=== PATIENT | female | born 1980 | race Caucasian/White ===

== ENCOUNTER 2018-08-26 19:23 | Emergency (ER) | payer BC ==
[2018-08-26] MEDS ORDERED: Ondansetron 4 MG/2 ML SDV IVPUSH ONE (20:25)
[2018-08-26] MEDS ORDERED: HYDROmorphone 0.5 MG/0.5 ML Syringe IVPUSH ONE (20:25)
--- NOTE | 2018-08-26 20:27 | EDM.PDOC ---
ED HPI GENERAL MEDICAL PROBLEM - General Chief Complaint: Flank Pain Stated Complaint: LEFT FLANK PAIN, VOMITING Time Seen by Provider: 08/26/18 20:26 Source of Information: Reports: Patient History Limitations: Reports: No Limitations - History of Present Illness INITIAL COMMENTS - FREE TEXT/NARRATIVE: pt has had some left flank pain on and off all last week. Today this pain has gotten quite severe at time. She did have a urine run on wed which had rbcs and bacteria. The urine was very concentrated. At this point the pain is being rated at a 10, Onset: Gradual, Other ( It has been there on and off for about 1 week. 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 ) HEENT: Reports: No Symptoms Respiratory: Reports: No Symptoms Cardiovascular: Reports: No Symptoms Endocrine: Reports: No Symptoms GI/Abdominal: Reports: Abdominal Pain, Nausea, Vomiting, Other (pt is having severe left flank pain. ) : Reports: Flank Pain, Hematuria Musculoskeletal: Reports: No Symptoms Skin: Reports: No Symptoms Neurological: Reports: No Symptoms ED EXAM, GI/ABD - Physical Exam Exam: See Below Text/Narrative:: pt arrived with severe left flank pain and chilling. This pain has become very severe today. Exam Limited By: No Limitations General Appearance: Alert, Anxious, Severe Distress, Active Emesis Ears: Normal TMs Nose: Normal Inspection Throat/Mouth: Normal Inspection Head: Atraumatic Neck: Normal Inspection Respiratory/Chest: No Respiratory Distress Cardiovascular: Regular Rate, Rhythm GI/Abdominal Exam: Other (pt has a soft abdoman but her left flank is tender. ) (Female) Exam: Other (pt does have a history of kidney stone. ) Rectal (Female) Exam: Deferred Back Exam: Normal Inspection Extremities: Normal Inspection Neurological: Alert, Oriented, Normal Cognition Psychiatric: Normal Affect Course - Vital Signs Last Recorded V/S: Last Vital Signs Temp 36.2 C 08/26/18 20:06 Pulse 84 08/26/18 23:13 Resp 20 08/26/18 23:13 BP 127/66 08/26/18 23:13 Pulse Ox 100 08/26/18 23:13 - Orders/Labs/Meds Orders: Active Orders 24 hr Category Date Time Status Bladder Scan [RC] ASDIRECTED Care 08/26/18 23:00 Active Abdomen Pelvis wo Cont [CT] Stat Exams 08/26/18 20:26 Taken CULTURE URINE [RM] Stat Lab 08/27/18 00:09 Ordered Sodium Chloride 0.9% [Normal Saline] 1,000 ml Med 08/26/18 20:30 Active IV ASDIRECTED Sodium Chloride 0.9% [Normal Saline] 1,000 ml Med 08/26/18 21:45 Active IV ASDIRECTED Sodium Chloride 0.9% [Normal Saline] 1,000 ml Med 08/26/18 23:15 Active IV ASDIRECTED Medication Orders Sodium Chloride (Normal Saline) 1,000 mls @ 999 mls/hr IV ASDIRECTED FARHAT Last Admin: 08/26/18 20:43 Dose: 999 mls/hr Sodium Chloride (Normal Saline) 1,000 mls @ 999 mls/hr IV ASDIRECTED FARHAT Last Admin: 08/26/18 22:11 Dose: 999 mls/hr Sodium Chloride (Normal Saline) 1,000 mls @ 999 mls/hr IV ASDIRECTED FARHAT Last Admin: 08/26/18 23:37 Dose: 999 mls/hr Labs: Laboratory Tests 08/26/18 08/26/18 08/26/18 Range/Units 20:40 20:40 21:13 WBC 19.7 H (4.5-11.0) K/uL RBC 4.99 (3.30-5.50) M/uL Hgb 13.7 (12.0-15.0) g/dL Hct 41.6 (36.0-48.0) % MCV 83 (80-98) fL MCH 28 (27-31) pg MCHC 33 (32-36) % Plt Count 230 (150-400) K/uL Neut % (Auto) 85 H (36-66) % Lymph % (Auto) 9 L (24-44) % Glenn % (Auto) 5 (2-6) % Eos % (Auto) 0 L (2-4) % Baso % (Auto) 0 (0-1) % Sodium 141 (140-148) mmol/L Potassium 3.7 (3.6-5.2) mmol/L Chloride 103 (100-108) mmol/L Carbon Dioxide 28 (21-32) mmol/L Anion Gap 10.3 (5.0-14.0) mmol/L BUN 15 (7-18) mg/dL Creatinine 1.0 (0.6-1.0) mg/dL Est Cr Clr Drug Dosing 74.22 mL/min Estimated GFR (MDRD) > 60 (>60) Glucose 119 H (74-106) mg/dL Calcium 9.1 (8.5-10.1) mg/dL Total Bilirubin 0.3 (0.2-1.0) mg/dL AST 23 (15-37) U/L ALT 36 (12-78) U/L Alkaline Phosphatase 77 (46-116) U/L C-Reactive Protein 1.39 H (0.0-0.3) mg/dL Total Protein 7.8 (6.4-8.2) g/dL Albumin 4.2 (3.4-5.0) g/dL Globulin 3.6 H (2.3-3.5) g/dL Albumin/Globulin Ratio 1.2 (1.2-2.2) Urine Color Urine Appearance Urine pH (4.5-8.0) Ur Specific [place] (1.008-1.030) Urine Protein (NEGATIVE) mg/dL Urine Glucose (UA) (NEGATIVE) mg/dL Urine Ketones (NEGATIVE) mg/dL Urine Occult Blood (NEGATIVE) Urine Nitrite (NEGATIVE) Urine Bilirubin (NEGATIVE) Urine Urobilinogen (NORMAL) mg/dL Ur Leukocyte Esterase (NEGATIVE) Urine RBC (0-5) Urine WBC (0-5) Ur Epithelial Cells Amorphous Sediment Urine Bacteria Urine Mucus 08/26/18 Range/Units 23:48 WBC (4.5-11.0) K/uL RBC (3.30-5.50) M/uL Hgb (12.0-15.0) g/dL Hct (36.0-48.0) % MCV (80-98) fL MCH (27-31) pg MCHC (32-36) % Plt Count (150-400) K/uL Neut % (Auto) (36-66) % Lymph % (Auto) (24-44) % Glenn % (Auto) (2-6) % Eos % (Auto) (2-4) % Baso % (Auto) (0-1) % Sodium (140-148) mmol/L Potassium (3.6-5.2) mmol/L Chloride (100-108) mmol/L Carbon Dioxide (21-32) mmol/L Anion Gap (5.0-14.0) mmol/L BUN (7-18) mg/dL Creatinine (0.6-1.0) mg/dL Est Cr Clr Drug Dosing mL/min Estimated GFR (MDRD) (>60) Glucose (74-106) mg/dL Calcium (8.5-10.1) mg/dL Total Bilirubin (0.2-1.0) mg/dL AST (15-37) U/L ALT (12-78) U/L Alkaline Phosphatase (46-116) U/L C-Reactive Protein (0.0-0.3) mg/dL Total Protein (6.4-8.2) g/dL Albumin (3.4-5.0) g/dL Globulin (2.3-3.5) g/dL Albumin/Globulin Ratio (1.2-2.2) Urine Color Yellow Urine Appearance Slightly cloudy Urine pH 5.0 (4.5-8.0) Ur Specific [place] 1.015 (1.008-1.030) Urine Protein Negative (NEGATIVE) mg/dL Urine Glucose (UA) Normal (NEGATIVE) mg/dL Urine Ketones Negative (NEGATIVE) mg/dL Urine Occult Blood Large (NEGATIVE) Urine Nitrite Negative (NEGATIVE) Urine Bilirubin Negative (NEGATIVE) Urine Urobilinogen Normal (NORMAL) mg/dL Ur Leukocyte Esterase Negative (NEGATIVE) Urine RBC 50-75 H (0-5) Urine WBC 0-5 (0-5) Ur Epithelial Cells Few Amorphous Sediment Moderate Urine Bacteria Not seen Urine Mucus Moderate Meds: Medications Generic Name Dose Route Start Last Admin Trade Name Freq PRN Reason Stop Dose Admin Sodium Chloride 1,000 mls @ 999 mls/hr 08/26/18 20:30 08/26/18 20:43 Normal Saline IV 999 mls/hr ASDIRECTED FARHAT Administration Sodium Chloride 1,000 mls @ 999 mls/hr 08/26/18 21:45 08/26/18 22:11 Normal Saline IV 999 mls/hr ASDIRECTED FARHAT Administration Sodium Chloride 1,000 mls @ 999 mls/hr 08/26/18 23:15 08/26/18 23:37 Normal Saline IV 999 mls/hr ASDIRECTED FARHAT Administration Discontinued Medications Generic Name Dose Route Start Last Admin Trade Name Freq PRN Reason Stop Dose Admin Hydromorphone HCl 0.5 mg 08/26/18 20:25 08/26/18 20:39 Dilaudid IVPUSH 08/26/18 20:26 0.5 mg ONETIME ONE Administration Ketorolac Tromethamine 30 mg 08/26/18 21:37 08/26/18 21:47 Toradol IVPUSH 08/26/18 21:38 30 mg ONETIME ONE Administration Ondansetron HCl 4 mg 08/26/18 20:25 08/26/18 20:38 Zofran IVPUSH 08/26/18 20:26 4 mg ONETIME ONE Administration Tamsulosin HCl 0.4 mg 08/26/18 21:37 08/26/18 21:48 Flomax PO 08/26/18 21:38 0.4 mg ONETIME ONE Administration - Re-Assessments/Exams Free Text/Narrative Re-Assessment/Exam: 08/27/18 00:05 pt was found to have a 3 mm stone in her left lower ureter. She has rbcs in her urine but not alot of bacteria. A culture was set uphe was given 3 liters of fluid in the er to catch her up on her fluid intake. She was given torodol 30mg iv which gave her very good relief. She is feeling much better. Departure - Departure Time of Disposition: 00:07 Disposition: Home, Self-Care 01 Condition: Fair Clinical Impression: Ureteral calculus, left, Elevated WBC count, Severe dehydration - Discharge Information Referrals: Felipa Damon CNM [Primary Care Provider] - Forms: ED Department Discharge Care Plan Goals: push fluids, flomax .4 1 tab daily for 5 days, torodol 10mg qid as needed for pain, percocet 5/325 q6h #6, cipro 500mg bid. strain all urine, appt with Dr Lopez in about 3 days,. - My Orders Last 24 Hours: My Active Orders 08/26/18 20:26 Abdomen Pelvis wo Cont [CT] Stat 08/26/18 20:30 Sodium Chloride 0.9% [Normal Saline] 1,000 ml IV ASDIRECTED 08/26/18 21:45 Sodium Chloride 0.9% [Normal Saline] 1,000 ml IV ASDIRECTED 08/26/18 23:00 Bladder Scan [RC] ASDIRECTED 08/26/18 23:15 Sodium Chloride 0.9% [Normal Saline] 1,000 ml IV ASDIRECTED 08/27/18 00:09 CULTURE URINE [RM] Stat - Assessment/Plan Last 24 Hours: My Active Orders 08/26/18 20:26 Abdomen Pelvis wo Cont [CT] Stat 08/26/18 20:30 Sodium Chloride 0.9% [Normal Saline] 1,000 ml IV ASDIRECTED 08/26/18 21:45 Sodium Chloride 0.9% [Normal Saline] 1,000 ml IV ASDIRECTED 08/26/18 23:00 Bladder Scan [RC] ASDIRECTED 08/26/18 23:15 Sodium Chloride 0.9% [Normal Saline] 1,000 ml IV ASDIRECTED 08/27/18 00:09 CULTURE URINE [RM] Stat
[2018-08-26] MEDS ORDERED: Sodium Chloride 0.9% 1,000 ML IV SCH ×3 (20:30→23:15)
[2018-08-26] MEDS ORDERED: Tamsulosin 0.4 MG Cap.ER PO ONE (21:37)
[2018-08-26] MEDS ORDERED: Ketorolac 30 MG/ML SDV IVPUSH ONE (21:37)
== END 2018-08-27 00:30 | disposition home or self-care (01) ==
LOC: JP.ED 19:23
DX: N13.2 Hydronephrosis with renal and ureteral calculous obstruction (principal); D72.829 Elevated white blood cell count, unspecified; E86.0 Dehydration; E66.9 Obesity, unspecified; Z88.0 Allergy status to penicillin
CPT/HCPCS: 36415; 51798; 74176; 80053; 81001; 85025; 86140; 87086; 96361; 96374; 96375; 99284; A9270; J1170; J1885; J2405; J7030

== ENCOUNTER 2019-08-08 23:26 | Emergency (ER) | payer BC ==
--- NOTE | 2019-08-09 00:10 | EDM.PDOC ---
ED HPI GENERAL MEDICAL PROBLEM - General Chief Complaint: Upper Extremity Injury/Pain Stated Complaint: LEFT SHOULDER PAIN Time Seen by Provider: 08/08/19 23:45 Source of Information: Reports: Patient History Limitations: Reports: No Limitations - History of Present Illness INITIAL COMMENTS - FREE TEXT/NARRATIVE: 39-year-old female woke up tonight with left shoulder pain for several minutes, nausea and a discomfort in the epigastric area. This is been a recurring problem for her for months, she also seems to have some less activity tolerance at tonight that she should come in to get checked. She did not get short of breath during the shoulder pain. It woke her up from sleep. It was her left shoulder, at times she has had right shoulder pain. No recent trauma, no consistent pain with activity. Onset: Unknown/Unsure (Woke with discomfort in the left shoulder) Location: Reports: Upper Extremity, Left Associated Symptoms: Reports: Other (Known recurring reflux problems). 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: Neurological History: Reports: Migraines Endocrine/Metabolic History: Reports: Obesity/BMI 30+ - Past Surgical History Female Surgical History: Reports: Section Social & Family History - Tobacco Use Smoking Status *Q: Never Smoker Second Hand Smoke Exposure: No - Caffeine Use Caffeine Use: Reports: Coffee, Soda - Recreational Drug Use Recreational Drug Use: No Review of Systems - Review of Systems Review Of Systems: See Below Constitutional: Denies: Fever Mouth/Throat: Reports: No Symptoms Respiratory: Denies: Shortness of Breath Cardiovascular: Denies: Chest Pain, Lightheadedness, Palpitations Genitourinary: Reports: No Symptoms Musculoskeletal: Reports: Shoulder Pain (Left side) Skin: Reports: No Symptoms Neurological: Denies: Dizziness, Headache Psychiatric: Reports: No Symptoms ED EXAM, GENERAL - Physical Exam Exam: See Below General Appearance: Alert, No Apparent Distress Head: Atraumatic Respiratory/Chest: No Respiratory Distress, Lungs Clear Cardiovascular: Regular Rate, Rhythm. No: Tachycardia, Extra Beats GI/Abdominal: Soft, Non-Tender Extremities: Normal Inspection. No: Pedal Edema Neurological: Alert, Oriented Psychiatric: Normal Affect, Normal Mood Skin Exam: Warm, Dry Course - Vital Signs Last Recorded V/S: Last Vital Signs Temp 96.7 F 08/08/19 23:43 Pulse 79 08/09/19 00:55 Resp 14 08/09/19 00:55 BP 125/69 08/09/19 00:55 Pulse Ox 99 08/09/19 00:55 - Orders/Labs/Meds Labs: Laboratory Tests 08/09/19 08/09/19 08/09/19 Range/Units 00:15 00:15 00:15 WBC 7.5 (4.5-11.0) K/uL RBC 4.42 (3.30-5.50) M/uL Hgb 12.5 (12.0-15.0) g/dL Hct 37.5 (36.0-48.0) % MCV 85 (80-98) fL MCH 28 (27-31) pg MCHC 33 (32-36) % Plt Count 181 (150-400) K/uL Neut % (Auto) 65 (36-66) % Lymph % (Auto) 25 (24-44) % [place] % (Auto) 9 H (2-6) % Eos % (Auto) 1 L (2-4) % Baso % (Auto) 0 (0-1) % D-Dimer, Quantitative < 100 (0.0-400.0) ng/mL Sodium 140 (140-148) mmol/L Potassium 3.8 (3.6-5.2) mmol/L Chloride 105 (100-108) mmol/L Carbon Dioxide 27 (21-32) mmol/L Anion Gap 8.0 (5.0-14.0) mmol/L BUN 12 (7-18) mg/dL Creatinine 0.8 (0.6-1.0) mg/dL Est Cr Clr Drug Dosing 88.39 mL/min Estimated GFR (MDRD) > 60 (>60) Glucose 133 H (74-106) mg/dL Calcium 8.5 (8.5-10.1) mg/dL Troponin I < 0.017 (0.000-0.056) ng/mL - Re-Assessments/Exams Free Text/Narrative Re-Assessment/Exam: 08/09/19 00:09 CBC, BMP, troponin and d-dimer were obtained. 08/09/19 00:46 D-dimer was negative, troponin was 0, rest of her labs were all basically normal. She had no symptoms while in the emergency room. I recommended a daily Prilosec, and following up with her primary care provider in the next 1 to 2 weeks. Departure - Departure Time of Disposition: 00:56 Disposition: Home, Self-Care 01 Clinical Impression: Atypical chest pain Acid reflux Qualifiers: Esophagitis presence: esophagitis presence not specified Qualified Code(s): K21.9 - Gastro-esophageal reflux disease without esophagitis - Discharge Information Instructions: Nonspecific Chest Pain Referrals: PCP,None [Primary Care Provider] - Forms: ED Department Discharge Care Plan Goals: Try 1 dose of omeprazole daily for the next 2 to 4 weeks, and follow-up in the near future to discuss the possibility of a stress test or further evaluation if not improving satisfactorily. Return sooner if worsening or concerns. Sepsis Event Note - Evaluation Sepsis Screening Result: No Definite Risk - Focused Exam Vital Signs: Vital Signs Temp Pulse Resp BP Pulse Ox 08/09/19 00:55 79 14 125/69 99 08/08/19 23:43 96.7 F 84 19 137/76 98 Date Exam was Performed: 08/09/19 Time Exam was Performed: 02:05
== END 2019-08-09 00:58 | disposition home or self-care (01) ==
LOC: JP.ED 23:26
DX: K21.9 Gastro-esophageal reflux disease without esophagitis (principal); Z88.0 Allergy status to penicillin
CPT/HCPCS: 36415; 80048; 84484; 85025; 85379; 99283

== ENCOUNTER 2021-10-11 17:22 | Emergency (ER) | payer BC, MEDICAID | END 2021-10-11 20:33 | disposition home or self-care (01) | LOC: JP.ED 17:22 | DX: N93.9 Abnormal uterine and vaginal bleeding, unspecified (principal); D50.0 Iron deficiency anemia secondary to blood loss (chronic); Z88.1 Allergy status to other antibiotic agents; Z88.0 Allergy status to penicillin | CPT/HCPCS: 36415; 82728; 85025; 85610; 85730; 86850; 86900; 86901; 93005; 93010; 99282; 99284-25 ==

== ENCOUNTER 2022-10-19 00:14 | Emergency (ER) | payer BC, MEDICAID ==
[2022-10-19] MEDS ORDERED: Aspirin 81 MG Tab.Chew PO ONE (00:47)
[2022-10-19 01:25] LABS: ESTIMATED GFR 95 mL/min (>60); TROPONIN I HIGH SENSITIVITY 8.2 pg/mL (<=60.3)
== END 2022-10-19 02:05 | disposition home or self-care (01) ==
LOC: JP.ED 00:14
DX: R07.89 Other chest pain (principal); E66.9 Obesity, unspecified; Z68.42 Body mass index [BMI] 45.0-49.9, adult; Z88.1 Allergy status to other antibiotic agents; Z88.0 Allergy status to penicillin; Z98.890 Other specified postprocedural states
CPT/HCPCS: 36415; 71045; 71045-26; 80053; 83605; 84484; 85025; 93005; 93010; 99283; 99285